=== PATIENT | female | born 1950 ===

== ENCOUNTER 2025-01-19 09:19 | Outpatient (AMB) | payer OTHER, SELFPAY ==
--- NOTE | 2025-01-19 09:20 | A.OFFVIS_ITS ---
Vital Signs 01/19/25 09:37 BP 124/80 Blood Pressure Location Lt radial Position Sitting BP not taken reason Medical Reason Temp 97.7 F Pulse Oximetry (%) 94 Intake Visit Reasons: [facility] Ref- thoracic pain Intake Note: Patient is a 74 year old female here today for new patient office visit. Patient was referred for L2 compression fracture and thoracic back pain with burning down the legs she also stats thats she is having chest pain with the back pain Allergies No Known Allergies Allergy (Verified 01/17/25 07:51) HPI Comments Details: History of Present Illness we used [employer] invisible braces orthodontist [id number] The patient is a 74-year-old female presenting for evaluation of chest pain, back pain, and rib pain. Her symptoms began in June of this year after she fell down a set of stairs, landing on her back. Following the fall, she was taken to an emergency room for evaluation. She was informed she had a vertebral fracture but was not shown the exact location. The patient's son states that the chest pain, in addition to her other pains, began after the injury. Patient does have L2, T12 compression fracture visible on x- ray. The location of the lumbar and lower thoracic compression fracture should not be causing any chest pain. When asked if her chest pain has been evaluated the patient's son is not sure. Her pain is central in the chest. There is no radiation to the neck or left arm. Patient denies any shortness of breath or palpitations. Patient does have mild cough. I reviewed the referring provider's no prior to consultation. I reviewed the referring provider's no prior to consultation. Pain Description - Location: The patient reports pain in the chest, back, and ribs traveling down to the pelvic area and hips. - Onset: All pain symptoms started after a fall in June. - Radiation: Back pain radiates to the sides and hip bones, while chest pain radiates to the jaw and both arms. - Exacerbating Factors: Back pain is worsened by leaning backward (extension), and rib pain is worsened by deep inspiration. - Associated symptoms: There is pain upon palpation of the chest. Review of Systems Narrative Review of Systems - Cardiovascular: Reports chest pain that radiates to the jaw and both arms. - Respiratory: Reports pain in the ribs with deep inspiration. - Musculoskeletal: Reports back pain in the low and mid-back, rib pain, and pain in the pelvic area and hips. Physical Exam Exam Exam: Physical Exam Chest exam: She is tender to the sternal border bilaterally. Her chest rises and falls symmetrically. Lumbar Spine: She is tender over the L5-S1 area. Full range of motion of her lumbar spine. She does have an increase in pain with facet loading. Special Tests: Lhermittes sign was negative Heel Toe walk is normal Left straight leg raise: Negative Right straight leg raise: Negative Special tests Real test is negative Ganslen's test is negative SI Joint compression test negative Nereyda test negative Piriformis stretch is negative Lower Extremities: Full range of motion bilateral lower extremities. No calf pain or edema. Neuro: Sensation: Intact to lower extremities bilaterally Strength L2 (Psoas): 5/5 on the left and 5/5 on the right. L3 (Quads): 5/5 on the left and 5/5 on the right. L4 (Ant tibialis): 5/5 on the left and 5/5 on the right. L5 (EHL) 5/5 on the left and 5/5 on the right. S1 (Gastroc): 5/5 on the left and 5/5 on the right. DTR L4: (Patellar) Left 2 Right 2 S1: (Achilles) Left 2 Right 2 Babinski Downgoing No pathologic clonus. No involuntary movement. Vital Signs: Last Vital Signs Temp 97.7 F 01/19/25 09:37 BP 124/80 01/19/25 09:37 Pulse Ox 94 01/19/25 09:37 Results Reviewed Results Reviewed: X-ray lumbar spine 09/15/2024 impression: Mild anterior wedging of the superior endplate of T12, new as compared to June of 2024. Multilevel degenerative changes of the lumbar spine. Moderate stool retention throughout the visible ablation: CT scan lumbar spine 06/29/2024 impression: Mild superior endplate compression fracture of L2. No rib fractures. Irregularity of bibasilar iliac bones. Without suspicious feature but is of uncertain etiology. No other fractures. Cystic 1.6 cm lesion of the pancreas. Recommend nonemergent outpatient follow-up with CT and MRI pancreatic protocol. Fluid-filled vaginal canal likely due to incontinence in supine position filling the bladder. CT scan cervical spine 06/29/2024 impression: No acute fracture or acute traumatic injury of the head or cervical spine. Old left medial orbital wall fracture. Assessment & Plan Assessment & Plan (1) Compression fracture of lumbar vertebra: Code(s): S32.000A - Wedge compression fracture of unspecified lumbar vertebra, initial encounter for closed fracture Category: Medical Qualifiers: Encounter type: subsequent encounter Lumbar vertebra fracture level: L2 Fracture healing: with routine healing Qualified Code(s): S32.020D - Wedge compression fracture of second lumbar vertebra, subsequent encounter for fracture with routine healing (2) Nontraumatic compression fracture of thoracic vertebra with routine healing: Code(s): M48.54XD - Collapsed vertebra, not elsewhere classified, thoracic region, subsequent encounter for fracture with routine healing Category: Medical Qualifiers: Thoracic vertebra fracture level: T12 Qualified Code(s): M48.54XD - Collapsed vertebra, not elsewhere classified, thoracic region, subsequent encounter for fracture with routine healing (3) Chest pain: Code(s): R07.9 - Chest pain, unspecified Category: Medical Qualifiers: Chest pain type: chest pain on breathing Qualified Code(s): R07.1 - Chest pain on breathing Plan Pain Management Plan Patient was informed and verbally consented to the use of an ambient scribe for clinic note documentation during this visit. 1. Chest Pain The patient's chest pain is concerning for a cardiac event and is believed to be unrelated to her known back fractures. Due to the potentially life-threatening nature of the chest pain, an immediate workup is required. The patient will be transferred to the local emergency department via ambulance for safety to rule out cardiac pathology with tests including an EKG and blood work. 2. Vertebral Compression Fractures The patient has known T12 and L2 vertebral fractures secondary to a fall. Management of her back and hip pain will be deferred until the acute chest pain is evaluated and a cardiac etiology has been ruled out. A follow-up appointment was scheduled for next week to address her back and hip pain. Discussion Notes I discussed with the patient and her son that although she presented for back pain, her concurrent chest pain is more urgent and potentially life-threatening. I explained that the chest pain seems unrelated to her known T12 and L2 fractures and requires immediate evaluation to rule out a serious cardiac condition, such as a heart attack. I recommended transferring her to the emergency department via ambulance as the safest course of action, ensuring she would be with family practice medical doctor if her condition worsened. We agreed to defer management of her back and hip pain until after the cardiac workup is complete, and we scheduled a follow-up appointment for next week to address those issues. Patient's vital signs remained stable throughout our office visit. Patient was transferred to the emergency department via ambulance. Patient Instructions - Go to the emergency department now by ambulance to have your chest pain checked. - The medical team there will perform tests to make sure your heart is not the cause of the pain. - It is very important to evaluate the chest pain before we can treat your back and hip pain. - You have a follow-up appointment scheduled for next week to discuss your back and hip pain after the emergency room visit. Coding Level of Care Code Tele New Pt Level 5 (68834) Diagnoses Compression fracture of L2 vertebra with routine healing, subsequent encounter S32.020D Encounter type: subsequent encounter Lumbar vertebra fracture level: L2 Fracture healing: with routine healing Nontraumatic compression fracture of T12 vertebra with routine healing, subsequent encounter M48.54XD Thoracic vertebra fracture level: T12 Chest pain on breathing R07.1 Chest pain type: chest pain on breathing Time Spent (min) 60 Comment 60 minutes reviewing the medical record and imaging, seeing the patient and documenting.
[2025-01-19 09:37] VITALS: BP 124/80; TEMP 36.5; O2SAT 94
== END 2025-01-19 10:36 | disposition home or self-care (01) ==
LOC: HO.HPHYS 09:19
PROVIDERS: PCP Physician Assistant; Visit Provider Physician Assistant
DX: S32.020D Wedge compression fracture of second lumbar vertebra, subsequent encounter for fracture with routine healing (principal); M48.54XD Collapsed vertebra, not elsewhere classified, thoracic region, subsequent encounter for fracture with routine healing; R07.1 Chest pain on breathing
CPT/HCPCS: 99205

== ENCOUNTER → 2025-01-19 09:19 | Outpatient (BNVA) | payer OTHER, SELFPAY | PROVIDERS: PCP Physician Assistant; Visit Provider Physician Assistant | DX: S32.020D Wedge compression fracture of second lumbar vertebra, subsequent encounter for fracture with routine healing (principal); R07.1 Chest pain on breathing; W10.8XXD Fall (on) (from) other stairs and steps, subsequent encounter | CPT/HCPCS: 99202 ==

== ENCOUNTER 2025-02-01 11:15 | Outpatient (AMB) | payer OTHER, SELFPAY ==
--- NOTE | 2025-02-01 11:24 | A.PHYSOV_ITS ---
Vital Signs 02/01/25 11:37 Height 5 ft 3 in Weight 156 lb BMI 27.6 Intake Visit Reasons: 2W followup Intake Note: Patient is a 74 year old female here for thoracic back pain. Career Services Assistant Required: Yes Career Services Assistant Language: Somali - Traditional Career Services Assistant Name: chet davis [phone] WANDERDAVINCENT Allergies No Known Allergies Allergy (Verified 02/01/25 11:31) HPI Comments Details: History of Present Illness The patient is a 74-year-old female presenting for evaluation of persistent back and thigh pain. She reports that her chest pain has improved following a recent evaluation where a scan was done and medications were prescribed. The patient's primary ongoing issue is back pain, which is localized to the low central back and radiates to the left side and anterior thigh. She also experiences numbness in her leg. She has a history of fractures in her back, which occurred after she slipped and fell downstairs. She has had a prior CAT scan of her back. Her pain level today as a 7/10. Pain does radiate into the left lower extremity. Patient was sent to the emergency department for chest pain and she is feeling better since that visit. Patient would like to consider further options for treatment. Pain Description - Onset: The patient has a history of back fractures from a fall. - Location: The pain is in the low back, in the center. - Radiation: The pain radiates to the left side and into the anterior thigh. - Associated symptoms: The patient reports numbness in the leg. - Exacerbating factors: Leaning back causes pain on the left side. Results - Imaging: A prior CAT scan revealed fractures in her back. - Imaging: An unspecified scan was recently performed for chest pain, and results were sent to the doctor. [facility] Social History (Updated 02/01/25 @ 11:32 by Dorita Darnell MA) Alcohol intake: current Alcohol intake frequency: does not drink Patient Tobacco Use Status: Never used Tobacco Review of Systems Narrative Review of Systems - Cardiovascular: Reports improving chest pain. - Musculoskeletal: Reports low back pain radiating to the thigh. - Neurological: Reports numbness in one leg. - All other systems reviewed and are negative. Physical Exam Exam Exam: Physical Exam - General: Patient is comfortable at rest. - Back: Patient demonstrates pain in the low back, in the center, with no pain higher up. - Back: Lumbar extension reproduces pain on the left side. - Neurologic: Motor strength is 5/5 in the lower extremities with ability to perform ankle plantarflexion/dorsiflexion, knee extension, and hip flexion. - Neurologic: Sensation to light touch appears intact bilaterally in the lower extremities, but the patient subjectively reports numbness in one leg. Vital Signs: BMI result Body Mass Index 27.6 Assessment & Plan Assessment & Plan (1) Lumbar radiculopathy: Code(s): M54.16 - Radiculopathy, lumbar region Category: Medical (2) Lumbar spondylosis: Code(s): M47.816 - Spondylosis without myelopathy or radiculopathy, lumbar region Category: Medical Plan Pain Management Plan Patient was informed and verbally consented to the use of an ambient scribe for clinic note documentation during this visit. 1. Low Back Pain With Left-Sided Radiculopathy The patient's low back pain, which radiates to the left anterior thigh and is associated with subjective numbness, is suggestive of radiculopathy. A prior CAT scan showed fractures but is insufficient for evaluating soft tissues. To better visualize the discs and nerves and identify a potential pinched nerve, an MRI of the lumbar spine is recommended. An order for the MRI will be placed, and the department will seek insurance authorization before scheduling. A follow-up visit will be scheduled to discuss the results in person. 2. Chest Pain, Improving The patient's chest pain is reported to be improving. This was addressed at a prior visit that included a scan and medication. No further workup is planned at this visit, as the focus is on her back pain. Discussion Notes I discussed with the patient and her family that her persistent low back pain, which radiates to the thigh, and associated numbness warrant further investigation. I explained that while her previous CAT scan was useful for assessing the known bone fractures from her prior fall, it does not provide adequate detail of the discs and nerves. I recommended we proceed with an MRI of her back, which will allow for a much better evaluation of the soft tissues and help identify if a nerve is being pinched, which could be the root cause of her symptoms. I screened for MRI contraindications, and she denies having any metal in her body or having claustrophobia. The family agreed with this plan. I informed them that I will place the order for the MRI, which can be done in [place]. I explained that the MRI department would first get approval from her insurance and would then call them to schedule the appointment. Once I receive the results, we will call them to schedule a follow-up appointment to review the findings in person. Patient Instructions - An MRI of your back has been ordered to get a better look at what is causing your pain. - The MRI scheduling department will call you to set up the appointment after they get approval from your insurance. - After the MRI is complete, our office will call you to schedule a follow-up visit to discuss the results. Coding Level of Care Code Est Pt Level 3 (84087) Diagnoses Lumbar radiculopathy M54.16 Lumbar spondylosis M47.816
[2025-02-01 11:37] VITALS: BMI 27.6
== END 2025-02-01 11:50 | disposition home or self-care (01) ==
LOC: HO.HPHYS 11:15
PROVIDERS: PCP Physician Assistant; Visit Provider Physician Assistant
DX: M54.16 Radiculopathy, lumbar region (principal); M47.816 Spondylosis without myelopathy or radiculopathy, lumbar region
CPT/HCPCS: 99213

== ENCOUNTER → 2025-02-01 11:15 | Outpatient (BNVA) | payer OTHER, SELFPAY | PROVIDERS: PCP Physician Assistant; Visit Provider Physician Assistant | DX: M47.26 Other spondylosis with radiculopathy, lumbar region (principal); R07.9 Chest pain, unspecified | CPT/HCPCS: 99212 ==